=== PATIENT | female | born 1995 | race Caucasian/White ===

== ENCOUNTER 2017-08-03 10:59 | Inpatient (IN) ==
[2017-08-03] MEDS ORDERED: BUTORPHANOL 2 MG/ML VIAL IV PRN (13:05)
[2017-08-03] MEDS ORDERED: ONDANSETRON 4 MG/2 ML VIAL IV PRN (13:05)
[2017-08-03] MEDS ORDERED: DINOPROSTONE VAG GEL 10 MG SYRINGE VAG ONE (13:07)
[2017-08-03 13:24] LABS: Basophils % 0.1 % (0.0-0.8); Eosinophils % 0.2 % (0.00-10.9); Hematocrit 31.3 VOL% (35.7-47.0); Hemoglobin 9.8 GM/DL (12.0-16.0); Immature Granulocytes % 0.5 %; Immature Granulocytes Absolute 0.07 #; Lymphocytes # 1.4 10*3/uL (1.4-4.0); Lymphocytes % 11.1 % (21.3-54.2); Mean Corpuscular HGB Conc 31.3 GM/DL (32-36); Mean Corpuscular Hemoglobin 27 PG (27-34); Mean Corpuscular Volume 87.4 FL (87-102); Mean Platelet Volume 13.4 FL (9.6-12.0); Monocytes # 0.6 10*3/uL (0.11-0.8); Monocytes % 4.9 % (1.7-12.7); Neutrophils # 10.8 10*3/uL (1.4-7.4); Neutrophils % 83.2 % (38.7-73.9); Platelet Count 152 T/CUMM (130-400); Red Blood Count 3.58 MC/CUMM (3.8-5.5); Red Cell Distribution Width 14.4 % (9.3-17.3)
[2017-08-03 13:47] LABS: Albumin 2.9 G/DL (3.4-5.0); Bilirubin,Total 0.4 MG/DL (0.2-1.0); Calcium 8.2 MG/DL (8.5-10.1); Osmolality,Calculated 273.7 MOS/KG (273-304); Potassium 4.4 MMOL/L (3.5-5.1); Total Protein 7.2 G/DL (6.4-8.3); Uric Acid 3.5 MG/DL (2.6-6.0)
[2017-08-03] MEDS: LACTATED RINGERS 1,000 ML IV SCH ×3 (13:48→22:05)
[2017-08-03] MEDS: MEPERIDINE 50 MG/1 ML VIAL IV PRN ×2 (16:08→18:13)
[2017-08-03] MEDS ORDERED: LACTATED RINGERS 1,000 ML IV ONE (18:23)
[2017-08-03] MEDS ORDERED: FAMOTIDINE 20 MG/2 ML VIAL IV ONE (18:23)
[2017-08-03] MEDS ORDERED: CITRIC ACID/SODIUM CITRATE 30 ML UDCUP PO ONE (18:23)
[2017-08-03] MEDS ORDERED: ePHEDrine 50 MG/ML AMP IV PRN (18:24)
[2017-08-03] MEDS ORDERED: diphenhydrAMINE 50 MG/1 ML VIAL IV PRN ×2 (18:24)
[2017-08-03] MEDS ORDERED: PROMETHAZINE 25 MG/1 ML VIAL IM ONE (18:24)
[2017-08-03] MEDS ORDERED: hydrOXYzine HCL 25 MG/1 ML VIAL IM PRN (18:24)
[2017-08-03] MEDS ORDERED: fentaNYL 2 MCG/ROPIV 0.2% EPID 150 ML EPIDURAL SCH (18:30)
[2017-08-03 22:43] LABS: Apearance,Urine CLEAR (Clear); Bacteria,Urine Occasional /HPF (Few); Bilirubin,Urine Negative (Negative); Blood, Urine Negative (Negative); Glucose,Urine (UA) Negative (Negative); Ketones,Urine 20 mg/dL (Negative); Mucus,Urine Occasional /LPF (Occasional); Nitrite,Urine Negative (Negative); Protein,Urine Negative; RBC,Urine 2 /HPF (0-4); Squamous Epithelial Cell,Urine Occasional /HPF (0-10); Urine Color Yellow (Yellow); Urine Urobilinogen < 2.0 EU/DL (0.2-1.0); WBC,Urine <1 /HPF (0-6)
[2017-08-04] MEDS ORDERED: OXYTOCIN/LR 20 UNIT/1,000 ML BAG IV ONE (03:53)
[2017-08-04] MEDS ORDERED: METHYLERGONOVINE 0.2 MG/1 ML AMP ONE (04:17)
[2017-08-04 05:19] LABS: Cord Venous Blood PCO2 51.5 MMHG
[2017-08-04] MEDS ORDERED: WITCH HAZEL PADS 100/JAR TOP PRN (06:06)
[2017-08-04] MEDS ORDERED: BENZOCAINE 20%/MENTHOL 0.5% SPRAY 56 GM CAN TOP PRN (06:06)
[2017-08-04] MEDS ORDERED: ACETAMINOPHEN 325 MG TABLET PO PRN (06:06)
[2017-08-04] MEDS ORDERED: MEASLES/MUMPS/RUBELLA VACCINE 0.5 ML VIAL SUBCUT ONE (06:06)
[2017-08-04] MEDS ORDERED: DIPH/TET/ACEL PERT BOOSTER VACCINE 0.5 ML VIAL IM ONE (06:06)
[2017-08-04] MEDS ORDERED: HYDROCORTISONE 2.5% RECTAL CREAM 30 GM TUBE TOP PRN (06:06)
[2017-08-04] MEDS ORDERED: LANOLIN 50% CREAM 0.3 OZ TUBE TOP PRN (06:06)
[2017-08-04] MEDS ORDERED: oxyCODONE/ACETAMINOPHEN 5-325 MG TABLET PO PRN (06:06)
[2017-08-04] MEDS ORDERED: RHO(D) IMMUNE GLOBULIN 300 MCG SYRINGE IM ONE (06:06)
[2017-08-04] MEDS ORDERED: BISACODYL 10 MG SUPP RECTAL PRN (06:06)
[2017-08-04] MEDS ORDERED: LEVOTHYROXINE 100 MCG TABLET PO SCH (06:30)
[2017-08-04] MEDS: LEVOTHYROXINE 100 MCG TABLET PO SCH (07:00)
[2017-08-04] MEDS: IBUPROFEN 800 MG TABLET PO PRN ×2 (07:00→18:27)
[2017-08-04] MEDS: ACETAMINOPHEN/CODEINE 300-30 MG TABLET PO PRN ×4 (07:55→21:39)
[2017-08-04] MEDS: DOCUSATE SODIUM 100 MG CAPSULE PO SCH ×2 (09:05→21:36)
[2017-08-05] MEDS: IBUPROFEN 800 MG TABLET PO PRN ×4 (01:13→19:27)
[2017-08-05] MEDS: ACETAMINOPHEN/CODEINE 300-30 MG TABLET PO PRN ×3 (03:57→11:51)
[2017-08-05 06:47] LABS: Basophils % 0.2 % (0.0-0.8); Eosinophils # 0.1 10*3/uL (0.0-0.87); Hematocrit 26.9 VOL% (35.7-47.0); Hemoglobin 8.6 GM/DL (12.0-16.0); Immature Granulocytes % 0.3 %; Immature Granulocytes Absolute 0.04 #; Lymphocytes # 1.6 10*3/uL (1.4-4.0); Mean Corpuscular Hemoglobin 28 PG (27-34); Mean Corpuscular Volume 86.8 FL (87-102); Mean Platelet Volume 13.5 FL (9.6-12.0); Monocytes # 0.6 10*3/uL (0.11-0.8); Monocytes % 5.5 % (1.7-12.7); Neutrophils # 9.1 10*3/uL (1.4-7.4); Platelet Count 141 T/CUMM (130-400); Red Cell Distribution Width 14.6 % (9.3-17.3); White Blood Count 11.5 T/CUMM (4-12)
[2017-08-05] MEDS: LEVOTHYROXINE 100 MCG TABLET PO SCH (07:35)
[2017-08-05] MEDS: DOCUSATE SODIUM 100 MG CAPSULE PO SCH ×2 (08:29→20:54)
[2017-08-05] MEDS ORDERED: RHO(D) IMMUNE GLOBULIN 300 MCG SYRINGE IM ONE (18:20)
[2017-08-05] MEDS: oxyCODONE/ACETAMINOPHEN 5-325 MG TABLET PO PRN (23:16)
[2017-08-06] MEDS: IBUPROFEN 800 MG TABLET PO PRN ×2 (01:45→08:02)
[2017-08-06] MEDS: oxyCODONE/ACETAMINOPHEN 5-325 MG TABLET PO PRN (05:07)
[2017-08-06] MEDS: LEVOTHYROXINE 100 MCG TABLET PO SCH (06:15)
[2017-08-06] MEDS: DOCUSATE SODIUM 100 MG CAPSULE PO SCH (08:02)
[2017-08-06 08:46] VITALS: BP 112/55
[2017-08-06] MEDS ORDERED: FERROUS SULFATE 325 MG TABLET PO SCH (09:00)
[2017-08-06] MEDS ORDERED: oxyCODONE/ACETAMINOPHEN 5-325 MG TABLET PO PRN (09:52)
== END 2017-08-06 12:05 | disposition home or self-care (01) | DRG 560 ==
LOC: N.LDOUT 10:59 → N.LD 11:03 → N.OB 08-04 10:13
PROVIDERS: ADMIT Obstetrics & Gynecology; ATTEND Obstetrics & Gynecology